=== PATIENT | female | born 1970 | race Caucasian/White ===

== ENCOUNTER 2016-12-07 20:15 | Emergency (ER) | payer MEDICAID, OTHER ==
[~2016-12-07] VITALS: Ht 165.1 cm; Wt 62.0 kg
[~2016-12-07 20:15] MED LIST: HYDR10TA16 PO; PROM25SU8 PO
[2016-12-07 20:24] VITALS: BP 149/94; PULSE 84; RESP 18; TEMP 98; O2SAT 98
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
[2016-12-07] MEDS ORDERED: ALPR0.25 PO (20:33)
[2016-12-07] MEDS ORDERED: KETOROLAC TROMETHAMINE 60 MG/2 ML (IM) VIAL IM ONE (20:45)
[2016-12-07] MEDS ORDERED: IBUP-232 PO (20:45)
[2016-12-07] MEDS ORDERED: TRAM50TA PO (20:45)
== END 2016-12-07 21:01 | disposition home or self-care (01) ==
LOC: PHEFT 20:15
DX: T23.231A Burn of second degree of multiple right fingers (nail), not including thumb, initial encounter (principal); X19.XXXA Contact with other heat and hot substances, initial encounter
CPT/HCPCS: 96372; 99284; J1885

== ENCOUNTER 2017-08-04 11:09 | Emergency (ER) | payer BC ==
[~2017-08-04 11:09] MED LIST changes: +ALPR0.25 PO; -HYDR10TA16 PO; +IBUP-232 PO; -PROM25SU8 PO; +TRAM50TA PO
[2017-08-04 11:17] VITALS: BP 118/70; PULSE 86; RESP 20; TEMP 97.8; O2SAT 100
[2017-08-04] MEDS ORDERED: ALPR0.5T3 PO (12:31)
[2017-08-04] MEDS ORDERED: DIAZEPAM 10 MG TAB PO ONE (13:15)
[2017-08-04] MEDS ORDERED: DEXAMETHASONE SOD PHOS 4 MG/ML VIAL IM ONE (13:15)
[2017-08-04] MEDS ORDERED: PRED20 PO (13:43)
[2017-08-04] MEDS ORDERED: TRAM50 PO (13:43)
[2017-08-04] MEDS ORDERED: ROBA750T PO (13:43)
--- NOTE | 2017-08-04 13:44 | PD ---
HPI Chief Complaint: Injury Time Seen by Provider: 12:40 Travel History International Travel<30 days: No Contact w/Intl Traveler<30days: No Traveled to known affect area: No History of Present Illness HPI 46-year-old female here with left-sided sciatic pain times one day. She reports she was bending over cleaning her bathroom yesterday afternoon and felt pain in her left buttocks when she stood up to a standing position. Since that time she's felt pain radiating from the left buttocks into the left leg. No paresthesias or weakness of the extremity. No incontinence. No midline spine pain. Severity is moderate. Aggravated by movement and slightly relieved with lying supine. PFSH Past Medical History Anxiety: Yes Diminished Hearing: No Immunizations Current: Yes Tetanus Vaccination: < 5 Years Influenza Vaccination: No ?: Not Tubal Ligation: Yes (2000) Past Surgical History Gynecologic Surgery: Yes (ENDOMETRIAL/UTERINE BIOPSY JAN 2011) Hysterectomy: Yes Social History Alcohol Use: No ("RARELY") Tobacco Use: No Substance Use: No Allergies-Medications (Allergen,Severity, Reaction): Coded Allergies: acetaminophen (Unverified Allergy, Severe, 08/04/17) BURNING ITCHING FACE oxycodone (Unverified Allergy, Severe, 08/04/17) BURNING ITCHING FACE Reported Meds & Prescriptions Reported Meds & Active Scripts Active Ultram (Tramadol HCl) 50 Mg Tab 50 Mg PO Q6H PRN Robaxin (Methocarbamol) 750 Mg Tab 750 Mg PO QID Prednisone 20 Mg Tab 40 Mg PO DAILY Take 40 mg (2 tablets) daily for 5 days Reported Alprazolam 0.5 Mg Tab 0.5 Mg PO BID PRN Review of Systems Except as stated in HPI: all other systems reviewed are Neg General / Constitutional: No: Fever Eyes: No: Visual changes HENT: No: Headaches Cardiovascular: No: Chest Pain or Discomfort Respiratory: No: Shortness of Breath Gastrointestinal: No: Abdominal Pain Genitourinary: No: Dysuria Physical Exam Narrative GENERAL: Alert well-appearing 46-year-old female SKIN: Warm and dry. HEAD: Atraumatic. Normocephalic. EYES: No injection or drainage. NECK: Supple MUSCULOSKELETAL: Extremities without clubbing, cyanosis, or edema. No obvious deformities. 2+ DP pulses. Normal sensation. Brisk cap refill. + Straight leg raise on the left. NEUROLOGICAL: Awake and alert. Motor grossly within normal limits. Five out of 5 muscle strength in the legs. Normal sensation. Patient can flex and extend the great toe. Ambulating with a steady gait. BACK:No point tenderness on palpation of the spine. No CVA tenderness. + TTP left gluteal Data Data Last Documented VS Vital Signs Date Time Temp Pulse Resp B/P (MAP) Pulse Ox O2 Delivery O2 Flow Rate FiO2 08/04/17 11:17 97.8 86 20 118/70 (86) 100 Orders Orders Dexamethasone Inj (Decadron Inj) (08/04/17 13:15) Diazepam (Valium) (08/04/17 13:15) MDM Medical Decision Making Medical Screen Exam Complete: Yes Emergency Medical Condition: Yes Differential Diagnosis Sciatica, lumbar strain, lumbar spine fracture unlikely Narrative Course 46-year-old female here with sciatica pain. She has a normal neurologic exam. She was given a shot of Decadron and Valium reports symptom improvement. She' ll be treated with steroids, muscle relaxers, pain medication and instructed to follow-up with her primary doctor. Return precautions were discussed. Patient verbalizes understanding and agrees to plan Diagnosis Primary Impression: Sciatica Qualified Codes: M54.32 - Sciatica, left side Referrals: Primary Care Physician Departure Forms: Tests/Procedures, Work Release Enter return to work date: Aug 07, 2017 Additional Instructions: Medication as directed. Avoid heavy lifting, bending, strenuous activity. Follow-up with her primary care for reevaluation. Scripts Tramadol (Ultram) 50 Mg Tab 50 MG PO Q6H Y for PAIN, #12 TAB 0 Refills Prov: Vanesa Jordan 08/04/17 Methocarbamol (Robaxin) 750 Mg Tab 750 MG PO QID for Muscle Spasm, #12 TAB 0 Refills Prov: Vanesa Jordan 08/04/17 Prednisone (Prednisone) 20 Mg Tab 40 MG PO DAILY, #10 TAB 0 Refills Take 40 mg (2 tablets) daily for 5 days Prov: Vanesa Jordan 08/04/17 Disposition: 01 DISCHARGE HOME Condition: Stable Vanesa Jordan Aug 04, 2017 13:44
== END 2017-08-04 14:24 | disposition home or self-care (01) ==
LOC: PHED 11:09 → PHEFT 14:24
DX: M54.32 Sciatica, left side (principal)
CPT/HCPCS: 96372; 99284; J1100

== ENCOUNTER 2017-10-01 19:10 | Emergency (ER) | payer BC ==
[~2017-10-01] VITALS: Ht 167.6 cm; Wt 59.0 kg
[~2017-10-01 19:10] MED LIST changes: -ALPR0.25 PO; +ALPR0.5T3 PO; -IBUP-232 PO; +PRED20 PO; +ROBA750T PO; +TRAM50 PO; -TRAM50TA PO
[2017-10-01 19:21] VITALS: BP 128/72; PULSE 72; RESP 18; TEMP 98.2; O2SAT 99
[2017-10-01] MEDS ORDERED: LIDOCAINE 1%/EPINEPHrine 1:100,000 SOLN 20 ML VIAL INFIL ONE (19:45)
[2017-10-01] MEDS ORDERED: TETANUS/DIPHTHERIA TOXOID ADULT 0.5 ML VIAL IM ONE (19:45)
--- NOTE | 2017-10-01 20:15 | PD ---
HPI Chief Complaint: Laceration/Skin Injury Time Seen by Provider: 19:34 Travel History International Travel<30 days: No Contact w/Intl Traveler<30days: No Traveled to known affect area: No History of Present Illness HPI 46-year-old female complains of left forearm pain after a yancy jar glass broke while she was washing dishes and lacerated her left forearm. A brisk bleed was observed as well as severe pain. No numbness tingling or weakness of the left upper extremity reported. Pain has been constant. Bleeding stopped with application of a pressure bandage. The last tetanus was within the past year. PFSH Past Medical History Anxiety: Yes Diminished Hearing: No Immunizations Current: Yes Tetanus Vaccination: < 5 Years Influenza Vaccination: No ?: Not Tubal Ligation: Yes (2000) Past Surgical History Gynecologic Surgery: Yes (ENDOMETRIAL/UTERINE BIOPSY JAN 2011) Hysterectomy: Yes Social History Alcohol Use: No ("RARELY") Tobacco Use: No Substance Use: No Allergies-Medications (Allergen,Severity, Reaction): Coded Allergies: acetaminophen (Unverified Allergy, Severe, 10/01/17) BURNING ITCHING FACE oxycodone (Unverified Allergy, Severe, 10/01/17) BURNING ITCHING FACE Reported Meds & Prescriptions Reported Meds & Active Scripts Active No Active Prescriptions or Reported Medications Review of Systems General / Constitutional: No: Fever Eyes: No: Blurred Vision HENT: No: Headaches Musculoskeletal: No: Weakness Neurologic: No: Weakness, Focal Abnormalities, Paresthesia, Sensory Disturbance Physical Exam Narrative GENERAL: 46-year-old female pleasant well-nourished well-developed Vital Signs Date Time Temp Pulse Resp B/P (MAP) Pulse Ox O2 Delivery O2 Flow Rate FiO2 10/01/17 19:21 98.2 72 18 128/72 (90) 99 SKIN: Warm and dry. There is a 5 cm laceration overlying the anterior aspect of the mid left forearm with smooth margins and exposed adipose tissue. Upon careful inspection after anesthesia there is no visualized foreign body. There is no gross tendon injury or neurologic injury. Trace venous oozing noted at the time of the initial assessment. HEAD: Atraumatic. Normocephalic. CARDIOVASCULAR: Regular rate and rhythm. RESPIRATORY: No accessory muscle use. Clear to auscultation. Breath sounds equal bilaterally. GASTROINTESTINAL: Abdomen soft, non-tender, nondistended. Hepatic and splenic margins not palpable. MUSCULOSKELETAL: Extremities without clubbing, cyanosis, or edema. No obvious deformities. NEUROLOGICAL: Awake and alert. No obvious cranial nerve deficits. Motor grossly within normal limits. Five out of 5 muscle strength in the arms and legs. Normal speech. Sensation median radial and ulnar nerve distribution is intact. Handgrip is equal bilaterally. Radial arteries 2+ bilaterally PSYCHIATRIC: No suicidal or homicidal ideation. MarkeD anxiety noted. Data Data Last Documented VS Vital Signs Date Time Temp Pulse Resp B/P (MAP) Pulse Ox O2 Delivery O2 Flow Rate FiO2 10/01/17 19:21 98.2 72 18 128/72 (90) 99 Orders Orders Lidocai-Epi 1%-1:100,000 Inj (Xylocaine- (10/01/17 19:45) Tetanus/Diphtheria Tox Adult (Tetanus/Di (10/01/17 19:45) Ed Discharge Order (10/01/17 20:15) MDM Medical Decision Making Medical Screen Exam Complete: Yes Emergency Medical Condition: Yes Medical Record Reviewed: Yes Differential Diagnosis Laceration, tendon injury, nerve injury, retained foreign body Narrative Course No foreign body visualized. Neuro vasculature is intact. 10 sutures were placed approximately. The patient asked for additional sutures however I could not reasonably place additional interrupted sutures. Procedures Procedure Narrative LACERATION LOCATION: [Left forearm] LENGTH: 5 cm NUMBER OF STITCHES/PABLO: 10 REPAIR: The area of the laceration was prepped with Betadine and sterilely draped. The laceration was infiltrated with lidocaine with epinephrine the wound was copiously irrigated and explored without evidence of foreign body, tendon injury or neurovascular injury. The wound was closed using [4-0 Ethilon] . This was a single] layer repair. A sterile dressing was applied. The patient was advised to keep the dressing clean and dry. Patient tolerated the procedure well. Diagnosis Primary Impression: Laceration of forearm without complication Qualified Codes: S51.812A - Laceration without foreign body of left forearm, initial encounter Referrals: RETURN IN 9 DAYS FOR SUTURE REMOVAL Med/Other Pt SpecificInfo: No Change to Meds Scripts No Active Prescriptions or Reported Meds Disposition: 01 DISCHARGE HOME Condition: Stable Paul Waddell MD October 01, 2017 20:15
== END 2017-10-01 20:32 | disposition home or self-care (01) ==
LOC: PHEFT 19:10
DX: S51.812A Laceration without foreign body of left forearm, initial encounter (principal); F41.9 Anxiety disorder, unspecified; Z88.5 Allergy status to narcotic agent; W25.XXXA Contact with sharp glass, initial encounter; Y93.G1 Activity, food preparation and clean up; Y92.000 Kitchen of unspecified non-institutional (private) residence as the place of occurrence of the external cause
CPT/HCPCS: 12002